=== PATIENT | female | born 1995 | race Native Hawaiian/Other Pacific Islander ===

== ENCOUNTER 2019-06-24 08:05 | Emergency (ER) | payer OTHER ==
[~2019-06-24] VITALS: Ht 147.3 cm; Wt 73.9 kg
[2019-06-24 08:47] LABS: POTASSIUM 3.9 mmol/L (3.6-5.2)
[2019-06-24 08:50] LABS: PLATELET COUNT 236 K/uL (152-353)
[2019-06-24 11:25] VITALS: BP 132/75; TEMP 98.2
== END 2019-06-24 11:25 | disposition home or self-care (01) ==
LOC: ED 08:05
PROVIDERS: Emergency Medicine
DX: O23.41 Unspecified infection of urinary tract in pregnancy, first trimester (principal)
CPT/HCPCS: 80053; 81000; 84702; 85027